=== PATIENT | male | born 1950 | race Caucasian/White ===

== ENCOUNTER 2017-01-18 07:41 | Day surgery (SDC) ==
--- NOTE | 2017-01-11 14:47 | EKG Report ---
Test Performed on : 01/11/2017 2:42:45 PM Test Reason : PAT Blood Pressure : / mmHG Vent. Rate : 066 BPM Atrial Rate : 066 BPM P-R Int : 146 ms QRS Dur : 084 ms QT Int : 402 ms P-R-T Axes : 046 050 075 degrees QTc Int : 421 ms Normal sinus rhythm. Nonspecific ST and T wave abnormality Abnormal ECG No previous ECGs available Confirmed by Tex Pineda MD ([id number]) on 01/12/2017 10:25:27 PM
[2017-01-11 15:17] LABS: HEMOGLOBIN 14.8 g/dL (14.0-18.0); MCH 33.3 PG (27-31); RBC 4.45 XMIL (4.7-6.1)
[2017-01-11 15:21] LABS: HEMATOCRIT 40.9 % (42.0-52.0); MCHC 36.2 g/dL (33-37); MCV 91.9 FL (81-99); MPV 10.6 FL (7.4-10.4)
[2017-01-11 16:31] LABS: AGAP 17; BUN 10 mg/dL (8-22); CALCIUM 9.2 mg/dL (8.8-10.2); CHLORIDE 97 mmol/L (98-107); COSMO 280; POTASSIUM 3.5 mmol/L (3.5-5.1); SODIUM 140 mmol/L (136-145); TCO2 26 mmol/L (25-35)
[2017-01-18] MEDS ORDERED: LR 1,000 ML ONE (07:50)
[2017-01-18] MEDS ORDERED: KEFZOL 2 GM/D5W 50 ML ONE (07:50)
[2017-01-18] MEDS ORDERED: DIPRIVAN 1% ONE (14:42)
[2017-01-18] MEDS ORDERED: FENTANYL ONE (14:42)
[2017-01-18] MEDS: DILAUDID ONE ×4 (14:50→15:15)
[2017-01-18] MEDS ORDERED: NS 1,000 ML ONE (15:07)
[2017-01-18] MEDS ORDERED: PHENERGAN PO PRN (15:14)
[2017-01-18] MEDS ORDERED: BENADRYL LIQUID PO PRN (15:14)
[2017-01-18] MEDS ORDERED: DITROPAN PO PRN (15:14)
[2017-01-18] MEDS ORDERED: TYLENOL PO PRN (15:14)
[2017-01-18] MEDS ORDERED: B & O 15A SUPP PR PRN (15:14)
[2017-01-18] MEDS ORDERED: PHENERGAN PR PRN (15:14)
[2017-01-18] MEDS ORDERED: ZOFRAN IV PRN (15:14)
[2017-01-18] MEDS ORDERED: BENADRYL IV PRN (15:14)
[2017-01-18] MEDS ORDERED: SODIUM CHLORIDE 0.9% INJ PRN (15:14)
[2017-01-18] MEDS ORDERED: PHENERGAN IV PRN (15:14)
[2017-01-18] MEDS ORDERED: ROBINUL ONE (15:20)
[2017-01-18] MEDS ORDERED: STERILE WATER INJ. ONE (15:20)
[2017-01-18] MEDS ORDERED: OFIRMEV 1000 MG/ISOTONIC SOLN 100 ML ONE (15:20)
[2017-01-18] MEDS ORDERED: MANNITOL ONE (15:20)
[2017-01-18] MEDS ORDERED: NORCURON ONE (15:20)
[2017-01-18] MEDS ORDERED: XYLOCAINE-MPF 2% ONE (15:20)
[2017-01-18] MEDS ORDERED: ZOFRAN ONE (15:20)
[2017-01-18] MEDS ORDERED: NEOSTIGMINE ONE (15:20)
[2017-01-18] MEDS ORDERED: DECADRON ONE (15:21)
[2017-01-18] MEDS ORDERED: LR 4,000 ML ONE (15:21)
[2017-01-18] MEDS ORDERED: QUELICIN (DOSE) ONE (15:21)
[2017-01-18 15:47] LABS: URINE SOURCE VOIDED
[2017-01-18] MEDS: NS 1,000 ML IV SCH (16:02)
[2017-01-18 16:03] LABS: BILIRUBIN URINE NEGATIVE (NEGATIVE); BLOOD URINE TRACE-LYSED (NEGATIVE); CLARITY CLEAR (CLEAR); COLOR YELLOW; GLUCOSE URINE NEGATIVE (NEGATIVE); LEUKOCYTES URINE NEGATIVE (NEGATIVE); NITRITE URINE NEGATIVE (NEGATIVE); PROTEIN URINE NEGATIVE (NEGATIVE); UROBILINOGEN URINE 0.2 EU/dL (0.2-1.0)
[2017-01-18] MEDS: MORPHINE IV PRN (16:07)
[2017-01-18] MEDS: LABETALOL IV PRN ×4 (16:08→23:41)
[2017-01-18 16:32] LABS: URINE EPITHELIAL CELLS <10 /HPF (<10); URINE WBC <10 /HPF (<10)
[2017-01-18] MEDS: COLACE PO SCH ×2 (19:58→21:28)
[2017-01-18] MEDS: LOPRESSOR PO SCH ×2 (19:58→21:28)
[2017-01-18] MEDS: KEFZOL 1 GM/D5W 50 ML IV SCH (19:58)
[2017-01-18] MEDS: PERIDEX MT SCH ×2 (19:58→21:29)
[2017-01-18] MEDS ORDERED: PNEUMOVAX 23 IM ONE (21:00)
[2017-01-18] MEDS: NORCO-7.5 PO PRN ×2 (21:24→23:41)
[2017-01-19] MEDS: NS 1,000 ML IV SCH (01:10)
[2017-01-19] MEDS: KEFZOL 1 GM/D5W 50 ML IV SCH ×2 (03:59→11:35)
[2017-01-19] MEDS: NORCO-7.5 PO PRN (04:48)
[2017-01-19] MEDS: LABETALOL IV PRN (05:17)
[2017-01-19 06:01] LABS: HEMATOCRIT 37.7 % (42.0-52.0); MCH 32.7 PG (27-31); MCHC 34.5 g/dL (33-37); MPV 10.4 FL (7.4-10.4); RBC 3.97 XMIL (4.7-6.1)
[2017-01-19 06:23] LABS: AGAP 12; BUN 11 mg/dL (8-22); CALCIUM 8.1 mg/dL (8.8-10.2); CHLORIDE 98 mmol/L (98-107); COSMO 275; POTASSIUM 3.6 mmol/L (3.5-5.1); SODIUM 135 mmol/L (136-145); TCO2 25 mmol/L (25-35)
[2017-01-19 06:29] LABS: CREATININE BODY FLUID 1.2 mg/dL
[2017-01-19] MEDS: SINGULAIR PO SCH ×2 (07:57→09:41)
[2017-01-19] MEDS: PRINIVIL PO SCH ×2 (07:57→09:41)
[2017-01-19] MEDS: LOPRESSOR PO SCH ×2 (07:57→09:41)
[2017-01-19] MEDS: COLACE PO SCH ×2 (07:57→09:41)
[2017-01-19] MEDS: NEXIUM PO SCH ×2 (07:57→09:41)
[2017-01-19] MEDS: HYDROCHLOROTHIAZIDE PO SCH ×2 (07:58→09:41)
[2017-01-19] MEDS: PERIDEX MT SCH ×2 (07:58→09:41)
[2017-01-19] MEDS: SYNTHROID PO SCH ×2 (07:58→09:41)
[2017-01-19] MEDS: LIPITOR PO SCH ×2 (07:58→09:41)
[2017-01-19] MEDS ORDERED: ZYLOPRIM PO SCH (09:00)
[2017-01-19] MEDS: MORPHINE IV PRN (10:17)
[2017-01-19 11:51] VITALS: BP 146/74
--- NOTE | 2017-02-17 13:35 | OPERATIVE NOTE ---
PROCEDURE DATE: 01/18/2017 PREOPERATIVE DIAGNOSIS: Left renal mass. POSTOPERATIVE DIAGNOSIS: Left renal mass. PROCEDURE PERFORMED: Left robotic-assisted laparoscopic partial nephrectomy. SURGEON: Gil Elizondo MD INDICATIONS: This is a 66-year-old male who presented with microscopic hematuria. In the process of imaging, he was found to have a left upper pole renal mass, which was 2.7 cm in diameter. He was counseled on the high likelihood of this enhancing lesion being a renal cell carcinoma and treatment options, including active surveillance, percutaneous ablation, or surgical excision. He elected to proceed with surgical excision. FINDINGS: 21 minute warm ischemia time and adequate hemostasis at the conclusion of the case. PROCEDURE IN DETAIL: After obtaining informed consent, the patient was brought to the operating room. Perioperative antibiotics and general endotracheal anesthesia were administered. He was placed in a modified flank position with the left side up with his upper and lower extremities appropriately padded. A 16-Bermudian Lopez catheter was inserted with return of clear urine. He was prepped and draped in a sterile fashion. We used a small stab incision with a 15 blade in the area of the umbilicus, followed by introduction of a Veress needle connected to a saline-filled syringe. We confirmed positive drop test, followed by aspiration of the syringe fluid, without evidence of GI contents or blood. We insufflated his pneumoperitoneal pressure to 15 mmHg. We then marked the trocar sites in standard partial nephrectomy fashion. Bovie electrocautery was used to incise the skin. A 12 mm camera trocar was introduced and his abdominal cavity was inspected with a robotic camera. He did not have any evidence of significant adhesions. We then placed the rest of the trocars under direct vision. Following that, the robot was docked and we began by taking down his descending colon, as well as the splenic flexure. This allowed us to visualize Gerota fascia of the left kidney. It was incised and perirenal fat was dissected toward the upper pole where the mass was. Eventually, the mass was identified. Once the mass was seen, I had approximately 1 cm margins. I turned attention to the lower pole of the kidney, which was dissected with identification of the left ureter as well as the left gonadal vein. We placed the kidney on anterior traction and dissected along the gonadal vein until we found its confluence into the left renal vein. I was able to identify a lumbar branch as well as a left adrenal vein. Both of those were spared. A vessel loop was placed around the renal vein. I was then able to identify the left renal artery which was behind the left renal vein. A vessel loop was placed around that as well. We then asked anesthesia to give the patient 12.5 g of mannitol. Following that, bulldog clamps were applied to the artery and subsequently the vein. Prior to that, intraoperative robotic [place] ultrasound was used to confirmed the mass in the appropriate location, delineate its margins, and confirm its depth. After that was done and, again, the hilum was clamped, we began by incising and excising the mass with cold monopolar scissors. I was able to see the edges of the mass and tried to take an approximately 2-3 mm margin. The mass was removed in its entirety and placed into the EndoCatch bag. We then used a 3-0 V-Loc suture to oversew the deep tissues and small bleeders. Following that, 0 V-Loc renorrhaphy sutures were used in an interrupted fashion x5 to reapproximate the defect. At that point, the bulldog clamps were removed, 1st off the vein and then off the artery and reexamination showed no evidence of significant bleeding. I then used the remainder of the V-Loc sutures to reapproximate Gerota fascia over the defect. Prior to that, we decreased pneumoperitoneal pressure to 3 mmHg, again with no evidence of active bleeding. We then placed a Clark drain through the fourth arm port and secured it to the skin with 2-0 nylon suture. Pneumoperitoneal pressure was decreased 1 last time and, like I said, again no evidence of bleeding or injury to adjacent structures was noted. The robot was undocked, trocars were removed, and the community assistant trocar site was extended and the mass was removed in 1 piece with an EndoCatch bag. The wounds were copiously irrigated. Suture of 0 Vicryl was then used to reapproximate the fascia in an interrupted fashion as well as the camera trocar fascia. Once we irrigated again, 4-0 Monocryl suture was used for subcuticular closure, followed by application of Dermabond skin adhesive. He was extubated and taken to the PACU for further recovery. ESTIMATED BLOOD LOSS: 500 mL. COMPLICATIONS: None. DISPOSITION: To PACU and subsequently the floor for observation with Lopez catheter to gravity drainage and Clark drain to bulb suction.
== END 2017-01-19 13:52 | disposition home or self-care (01) ==
LOC: OPS 07:41 → UNDOADMOB 15:05 → 4N 15:05 → OPS 01-19 13:52 → UNDODISOB 01-19 13:52
PROVIDERS: ATTEND Urology
DX: C64.2 Malignant neoplasm of left kidney, except renal pelvis (principal); N28.89 Other specified disorders of kidney and ureter; R31.29 Other microscopic hematuria; E29.1 Testicular hypofunction; N40.0 Benign prostatic hyperplasia without lower urinary tract symptoms; I10 Essential (primary) hypertension; E03.9 Hypothyroidism, unspecified; I25.10 Atherosclerotic heart disease of native coronary artery without angina pectoris; Z95.5 Presence of coronary angioplasty implant and graft; K21.9 Gastro-esophageal reflux disease without esophagitis; M10.9 Gout, unspecified; G47.33 Obstructive sleep apnea (adult) (pediatric); Z23 Encounter for immunization; Z79.899 Other long term (current) drug therapy; Z79.82 Long term (current) use of aspirin; Z87.891 Personal history of nicotine dependence; Z80.0 Family history of malignant neoplasm of digestive organs
CPT/HCPCS: 76942; 80048; 81001; 82570; 85027; 86850; 86900; 86901; 88307; 88313; 90732; 93005; 93010; J0131; J0330; J0690; J1100; J1170; J2150; J2270; J2405; J3010; J7030; J7120; J2710